=== PATIENT | female | born 1945 | race Asian ===

== ENCOUNTER 2025-02-26 09:01 | Emergency (ER) | payer MEDICARE, MEDICAID ==
[~2025-02-26] VITALS: Ht 160 cm; Wt 74.1 kg
[~2025-02-26 09:01] MED LIST: DSS100 PO; FERR325T27 PO
[2025-02-26 09:06] VITALS: TEMP 97.2
[2025-02-26] MEDS: LIDOCAINE 1% 20 ML VIAL SQ ONE (11:24)
[2025-02-26] MEDS ORDERED: IBUP-1492 PO (13:03)
[2025-02-26 13:33] VITALS: BP 141/66; PULSE 71; RESP 18; O2SAT 100
== END 2025-02-26 15:27 | disposition home or self-care (01) ==
LOC: EMS 09:01
DX: S52.591A Other fractures of lower end of right radius, initial encounter for closed fracture (principal); S01.81XA Laceration without foreign body of other part of head, initial encounter; Z98.890 Other specified postprocedural states; Z88.0 Allergy status to penicillin; Z88.5 Allergy status to narcotic agent; Z79.899 Other long term (current) drug therapy; W01.10XA Fall on same level from slipping, tripping and stumbling with subsequent striking against unspecified object, initial encounter; Y93.89 Activity, other specified; Y92.89 Other specified places as the place of occurrence of the external cause; Y99.8 Other external cause status
CPT/HCPCS: 99284; 70450; 73110; 29125; 12002; J3490

== ENCOUNTER 2025-03-05 08:38 | Emergency (ER) | payer MEDICARE, MEDICAID ==
[~2025-03-05] VITALS: Ht 160 cm; Wt 74.0 kg
[~2025-03-05 08:38] MED LIST changes: +IBUP-1492 PO
[2025-03-05 08:51] VITALS: TEMP 98.1
[2025-03-05 10:38] VITALS: BP 117/65; PULSE 89; RESP 16; O2SAT 99
== END 2025-03-05 10:39 | disposition home or self-care (01) ==
LOC: EMS 08:39
DX: S01.81XD Laceration without foreign body of other part of head, subsequent encounter (principal); Z98.890 Other specified postprocedural states; Z88.0 Allergy status to penicillin; Z88.5 Allergy status to narcotic agent; Z79.899 Other long term (current) drug therapy; X58.XXXD Exposure to other specified factors, subsequent encounter
CPT/HCPCS: 99282; Z7502